=== PATIENT | female | born 1995 | race Caucasian/White ===

== ENCOUNTER 2019-07-08 23:59 | Emergency (ER) | payer OTHER ==
[~2019-07-08] VITALS: Ht 162.6 cm; Wt 55.8 kg
[2019-07-09 00:01] VITALS: BP 113/70; Ht 162.6 cm; Wt 55.8 kg
== END 2019-07-09 00:32 | disposition home or self-care (01) ==
LOC: ED 23:59
DX: Z13.9 Encounter for screening, unspecified (principal)